=== PATIENT | female | born 2000 | race Caucasian/White ===

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

== ENCOUNTER 2021-06-09 19:07 | Outpatient (REF) | payer BC, SELFPAY ==
[2021-06-10 15:47] LABS: Chlamydia Result Negative (Negative); GC Result Negative (Negative)
== END 2021-06-09 19:08 | disposition home or self-care (01) ==
LOC: LBN 19:07
PROVIDERS: PCP Nurse Practitioner Pediatrics; Visit Provider Obstetrics & Gynecology Gynecology
DX: Z11.3 Encounter for screening for infections with a predominantly sexual mode of transmission (principal)
CPT/HCPCS: 87491; 87591

== ENCOUNTER 2022-01-12 21:15 | Outpatient (REF) | payer BC, SELFPAY ==
[2022-01-13 13:41] LABS: Chlamydia Result Negative (Negative); GC Result Negative (Negative)
== END 2022-01-12 21:16 | disposition home or self-care (01) ==
LOC: LBN 21:15
PROVIDERS: PCP Nurse Practitioner Pediatrics; Visit Provider Nurse Practitioner Women's Health
DX: Z11.3 Encounter for screening for infections with a predominantly sexual mode of transmission (principal)
CPT/HCPCS: 87491; 87591

== ENCOUNTER 2022-04-12 18:04 | Outpatient (REF) | payer BC, SELFPAY | END 2022-04-12 18:05 | disposition home or self-care (01) | LOC: LBN 18:04 | PROVIDERS: PCP Nurse Practitioner Pediatrics; Visit Provider Nurse Practitioner Women's Health | DX: R30.0 Dysuria (principal) | CPT/HCPCS: 87086 ==

== ENCOUNTER 2023-09-19 15:54 | Outpatient (REF) | payer BC, SELFPAY ==
[2023-09-21 12:07] LABS: Chlamydia Result Negative (Negative); GC Result Negative (Negative)
== END 2023-09-19 15:55 | disposition home or self-care (01) ==
LOC: LBN 15:54
PROVIDERS: PCP Nurse Practitioner Pediatrics; Visit Provider Nurse Practitioner Women's Health
DX: N76.0 Acute vaginitis (principal); Z11.3 Encounter for screening for infections with a predominantly sexual mode of transmission; B96.89 Other specified bacterial agents as the cause of diseases classified elsewhere
CPT/HCPCS: 87491; 87591; 87480; 87510; 87660